=== PATIENT | female | born 1975 | race Caucasian/White ===

== ENCOUNTER → 2023-08-12 07:57 | Outpatient (REF) | payer OTHER, SELFPAY | LOC: HWRAD 07:57 | PROVIDERS: ATTENDING PHYSICIAN Family Medicine | DX: R10.84 Generalized abdominal pain (principal) | CPT/HCPCS: 74176 ==

== ENCOUNTER → 2024-02-17 07:33 | Outpatient (REF) | payer OTHER, SELFPAY | LOC: PAVMRI 07:33 | PROVIDERS: ATTENDING PHYSICIAN Internal Medicine Gastroenterology; FAMILY PHYSICIAN Family Medicine | DX: R10.12 Left upper quadrant pain (principal); K76.89 Other specified diseases of liver; Z80.0 Family history of malignant neoplasm of digestive organs | CPT/HCPCS: 74183; A9575 ==

== ENCOUNTER → 2024-03-29 13:08 | Outpatient (REF) | payer OTHER, SELFPAY | LOC: HWEVLT 13:08 | PROVIDERS: ATTENDING PHYSICIAN Radiology Diagnostic Radiology | DX: I83.891 Varicose veins of right lower extremity with other complications (principal) | CPT/HCPCS: 93971 ==

== ENCOUNTER → 2024-09-05 16:09 | Outpatient (REF) | payer OTHER, SELFPAY | LOC: HWRAD 16:09 | PROVIDERS: ATTENDING PHYSICIAN Nurse Practitioner Adult Health | DX: R05.1 Acute cough (principal); R06.02 Shortness of breath | CPT/HCPCS: 71046 ==